=== PATIENT | female | born 1990 | race African-American/Black ===

== ENCOUNTER 2025-06-20 23:23 | Emergency (ER) | payer MEDICAID ==
[2025-06-21 02:56] LABS: CLARITY URINE CLOUDY (CLEAR); COLOR URINE RED (YELLOW); GLUCOSE URINE NEGATIVE (NEGATIVE); KETONES URINE NEGATIVE (NEGATIVE); LEUKOCYTE ESTERASE URINE 1+ (NEGATIVE); NITRITE URINE NEGATIVE (NEGATIVE); OCCULT BLOOD URINE 3+ (NEGATIVE); PH URINE 5.5 (4.5-8.0); PROTEIN URINE 2+ (NEGATIVE); SPECIFIC GRAVITY URINE 1.028 (1.005-1.030); UROBILINOGEN URINE 0.2 E.U./dL (0.2-1.0)
[2025-06-21] MEDS ORDERED: CEPH500C2 MT (03:04)
[2025-06-21 03:14] VITALS: BP 156/88; PULSE 72; RESP 18; TEMP 36.2; O2SAT 100
[2025-06-21 03:28] LABS: BACTERIA URINE 1+; RBC URINE TNTC /hpf (0-2); SQUAMOUS EPITHELIAL CELL URINE 1+ /lpf (RARE/1+)
== END 2025-06-21 03:19 | disposition home or self-care (01) ==
LOC: ER 23:23
DX: N39.0 Urinary tract infection, site not specified (principal)
CPT/HCPCS: 81003; 81025; 99283

== ENCOUNTER 2025-06-28 20:26 | Emergency (ER) | payer MEDICAID ==
[~2025-06-28] VITALS: Ht 160 cm; Wt 100.7 kg
[~2025-06-28 20:26] MED LIST: CEPH500C2 MT
[2025-06-28 20:48] VITALS: O2SAT 100
[2025-06-28 22:02] LABS: GLUCOSE URINE NEGATIVE (NEGATIVE); KETONES URINE TRACE (NEGATIVE); LEUKOCYTE ESTERASE URINE 1+ (NEGATIVE); NITRITE URINE NEGATIVE (NEGATIVE); OCCULT BLOOD URINE NEGATIVE (NEGATIVE); PH URINE 6.0 (4.5-8.0); PROTEIN URINE TRACE (NEGATIVE); SPECIFIC GRAVITY URINE 1.027 (1.005-1.030); UROBILINOGEN URINE 1.0 E.U./dL (0.2-1.0)
[2025-06-28 22:24] LABS: CLARITY URINE HAZY (CLEAR); COLOR URINE STRAW (YELLOW)
[2025-06-28 22:26] LABS: RBC URINE NONE SEEN /hpf (0-2); SQUAMOUS EPITHELIAL CELL URINE 3+ /lpf (RARE/1+)
[2025-06-28 22:27] LABS: BACTERIA URINE TRACE; MUCUS URINE 1+ /lpf (< = 2+)
[2025-06-28] MEDS: FLUCONAZOLE 150MG TABLET PO NR (22:45)
[2025-06-28] MEDS ORDERED: FLUCONAZOLE 100MG TABLET PO ONE (22:45)
[2025-06-28] MEDS: LIDOCAINE 5% PATCH TOP SCH (23:28)
[2025-06-28 23:47] VITALS: BP 140/76; PULSE 71; RESP 16; TEMP 36.3; O2SAT 99
== END 2025-06-28 23:48 | disposition home or self-care (01) ==
LOC: ER 20:26
DX: B37.31 Acute candidiasis of vulva and vagina (principal); Z11.3 Encounter for screening for infections with a predominantly sexual mode of transmission; M54.50 Low back pain, unspecified
CPT/HCPCS: 81003; 81025; 87210; 99283

== ENCOUNTER 2025-07-03 19:13 | Emergency (ER) | payer MEDICAID ==
[~2025-07-03] VITALS: Ht 160 cm; Wt 100.0 kg
[2025-07-03 19:32] VITALS: O2SAT 100
[2025-07-03] MEDS ORDERED: NITR100C MT (22:54)
[2025-07-03 23:01] LABS: CLARITY URINE CLEAR (CLEAR); COLOR URINE YELLOW (YELLOW); GLUCOSE URINE NEGATIVE (NEGATIVE); KETONES URINE NEGATIVE (NEGATIVE); LEUKOCYTE ESTERASE URINE TRACE (NEGATIVE); NITRITE URINE NEGATIVE (NEGATIVE); OCCULT BLOOD URINE NEGATIVE (NEGATIVE); PH URINE 6.0 (4.5-8.0); PROTEIN URINE NEGATIVE (NEGATIVE); SPECIFIC GRAVITY URINE 1.026 (1.005-1.030); UROBILINOGEN URINE 0.2 E.U./dL (0.2-1.0)
[2025-07-03 23:38] VITALS: BP 142/79; PULSE 79; RESP 18; TEMP 36.8; O2SAT 100
[2025-07-03 23:38] LABS: BACTERIA URINE TRACE; RBC URINE NONE SEEN /hpf (0-2); SQUAMOUS EPITHELIAL CELL URINE FEW /lpf (RARE/1+); WBC URINE 0-2 /hpf (0-2)
== END 2025-07-03 23:42 | disposition home or self-care (01) ==
LOC: ER 19:13
DX: N39.0 Urinary tract infection, site not specified (principal); I10 Essential (primary) hypertension
CPT/HCPCS: 81003; 99283